=== PATIENT | female | born 1945 | race Caucasian/White ===

== ENCOUNTER 2016-11-08 05:52 | Day surgery (SDC) | payer MEDICARE, OTHER ==
--- NOTE | ~2016-11-08 | EGD ---
EGD REPORT [facility] [address] [address] NAME: KEREN BILLINGSLEY : [birth year] STATUS : REG [facility]#: [id number] AGE: 71 ADM/REG DATE : 11/08/16 MR#: [id number] REPORT SERV DATE: 11/08/16 DICTATED BY: ALEJANDRA WHITFIELD DATE: 11/08/16 REPORT STATUS : Draft [facility]: [facility] DATE: 11/08/16 [facility] Center Patient Name: Keren Billingsley Date of : 1945 Attending MD: ALEJANDRA WHITFIELD, Procedure Date No Time: 11/08/2016 Procedure: Upper EUS Indications: Gastric deformity on endoscopy/Subepithelial tumor versus extrinsic compression Referring MD: ROBERT Wan Medicines: Monitored Anesthesia Care Complications: No immediate complications. Estimated blood loss: None. Procedure: Pre-Anesthesia Assessment: - ASA Grade Assessment: III - A patient with severe systemic disease. After obtaining informed consent, the endoscope was passed under direct vision. Throughout the procedure, the patient's blood pressure, pulse, and oxygen saturations were monitored continuously. The GIF [id number] was introduced through the mouth, and advanced to the second part of duodenum. The Endoscope was introduced through the mouth, and advanced to the second part of duodenum. Findings: Endoscopic Finding : The examined esophagus was endoscopically normal. Type 1 isolated gastric varices (IGV1, varices located in the fundus) with no bleeding were found in the gastric fundus. There were no stigmata of recent bleeding. They were 40 mm in largest diameter. Few non-bleeding cratered gastric ulcers with no stigmata of bleeding were found in the gastric antrum from recent argon plasma coagulation. The largest lesion was 10 mm in largest dimension. The exam of the stomach was otherwise normal. The examined duodenum was endoscopically normal. Endosonographic Finding : Endoscopic ultrasound examination revealed multiple tubal, anechoic structures in the fundus of the stomach consistent with varices. These measured 43 mm. These were confirmed to be vascular with doppler There was no sign of significant endosonographic abnormality in the entire pancreas. The pancreas was well visualized, no pathologic lymphadenopathy, no masses, no calcifications, the pancreatic duct was well visualized from ampulla to tail, the pancreatic duct was regular in contour. There was no sign of significant endosonographic abnormality in the EGD REPORT [address] [address] NAME: KEREN BILLINGSLEY : [birth year] STATUS : REG [facility] [place] PAT#: [id number] AGE: 71 ADM/REG DATE : 11/08/16 MR#: [id number] REPORT SERV DATE: 11/08/16 DICTATED BY: ALEJANDRA WHITFIELD DATE: 11/08/16 REPORT STATUS : Draft TRANSCRIBED BY: [employer] DATE: 11/08/16 common bile duct. There was no sign of significant endosonographic abnormality in the examined duodenum. There was no sign of significant endosonographic abnormality in the esophagus. Impression: - Normal esophagus. - Type 1 isolated gastric varices (IGV1, varices located in the fundus), without bleeding. - Gastric ulcers with clean base. - Normal examined duodenum. - Varices were visualized endosonographically in the fundus of the stomach. - There was no sign of significant pathology in the entire pancreas. - There was no sign of significant pathology in the common bile duct. - There was no sign of significant pathology in the examined duodenum. - There was no sign of significant pathology in the esophagus. Recommendation: - Return to referring physician. - Return to previous diet. - Continue present medications. Procedure Code(s): --- Professional --- 79687, Esophagogastroduodenoscopy, flexible, transoral; with endoscopic ultrasound examination, including the esophagus, stomach, and either the duodenum or a surgically altered stomach where the jejunum is examined distal to the anastomosis Diagnosis Code(s): --- Professional --- I86.4, Gastric varices K25.9, Gastric ulcer, unspecified as acute or chronic, without hemorrhage or perforation K31.9, Disease of stomach and duodenum, unspecified CPT copyright 2013 [employer]. All rights reserved. The codes documented in this report are preliminary and upon remote inpatient coder review may be revised to meet current compliance requirements. PIO ELMORE REPORT [facility] [address] [place], [place] [address]. [address] NAME: KEREN BILLINGSLEY : [birth year] STATUS : REG [facility] [place] PAT#: [id number] AGE: 71 ADM/REG DATE : 11/08/16 MR#: [id number] REPORT SERV DATE: 11/08/16 DICTATED BY: ALEJANDRA WHITFIELD DATE: 11/08/16 REPORT STATUS : Draft TRANSCRIBED BY: [employer] DATE: 11/08/16 11/08/2016 8:42 AM Number of Addenda: 0 Note Initiated On: 11/08/2016 6:59 AM Scope Withdrawal Time 0 hours 0 minutes [address] [place], [place] [address] [address]
[~2016-11-08 05:52] MED LIST: C5 PO; FISH-EPA1000 MG PO; GLUCPH PO; L40 PO; LAN25 PO; LOTREL1 CA2 PO; MIRALAX POWDER1 PKT PO; PRAVACHOL40 MG PO; PROTONIX PO
[2016-11-08 06:42] LABS: INTERNATIONAL NORMAL RATI 1.3 UNITS (-); PROTIME (NOT ORD) 16.2 SEC (12.0-14.5)
[2016-11-08 06:45] LABS: BUN (BLOOD UREA NITROGEN) 11 MG/DL (6-23); CALCIUM, SERUM 9.2 MG/DL (8.5-10.4); CHLORIDE, SERUM 109 MMOL/L (96-112); CO2 (CARBON DIOXIDE) 24 MMOL/L (24-34); CREATININE 0.64 MG/DL (0.55-1.02); GFR AFRICAN AMERICAN 106 ML/MIN (>=60); GFR NON AFRICAN AMERICAN 91 ML/MIN (>=60); GLUCOSE, SERUM 93 MG/DL (60-99); POTASSIUM, SERUM 4.1 MMOL/L (3.5-5.3); SODIUM, SERUM 142 MMOL/L (135-148)
== END 2016-11-08 23:59 | disposition home or self-care (01) ==
LOC: DMU 05:52
PROVIDERS: Anesthesiology; Internal Medicine Gastroenterology
PROC: 0DJ08ZZ Inspection of Upper Intestinal Tract, Via Natural or Artificial Opening Endoscopic (ICD-10-PCS; principal; 2016-11-08 08:00)
DX: I86.4 Gastric varices (principal); K25.9 Gastric ulcer, unspecified as acute or chronic, without hemorrhage or perforation; K31.9 Disease of stomach and duodenum, unspecified; G25.81 Restless legs syndrome; I48.91 Unspecified atrial fibrillation; M19.90 Unspecified osteoarthritis, unspecified site; E11.9 Type 2 diabetes mellitus without complications; D64.9 Anemia, unspecified; L30.9 Dermatitis, unspecified; R01.1 Cardiac murmur, unspecified; Z79.899 Other long term (current) drug therapy; Z98.890 Other specified postprocedural states; Z90.710 Acquired absence of both cervix and uterus; Z79.01 Long term (current) use of anticoagulants; Z79.84 Long term (current) use of oral hypoglycemic drugs
CPT/HCPCS: 80048; 85610